=== PATIENT | male | born 1990 | race African-American/Black ===

== ENCOUNTER 2020-05-14 07:55 | Outpatient (CLI) | payer OTHER ==
--- NOTE | 2020-05-14 09:11 | MRI ---
EXAM: MRI left elbow PROVIDED CLINICAL HISTORY: Pain COMPARISON: None FINDINGS: The biceps, brachialis and triceps tendon insertions appear intact. The common flexor and common extensor tendon origins appear intact. The medial and lateral elbow ligaments appear intact. No focal articular cartilage defect is apparent. The amount of fluid within the elbow joint appears p hysiologic. Alignment appears anatomic. No focal concerning regional marrow or muscular signal abnormality is evident. The courses of the regional major neurovascular structures appear unremarkable. IMPRESSION: No evidence for internal derangement.
== END 2020-05-14 07:56 | disposition home or self-care (01) ==
LOC: TBSIIMAG 07:55
PROVIDERS: ATTEND Orthopaedic Surgery
DX: M25.522 Pain in left elbow (principal)